=== PATIENT | female | born 1955 | race Caucasian/White ===

== ENCOUNTER 2024-05-04 13:01 | Emergency (ER) | payer OTHER, MEDICARE ==
[~2024-05-04] VITALS: Ht 160 cm; Wt 102.1 kg
[2024-05-04 13:14] VITALS: BP_SYST 169; PULSE 76; RESP 16; TEMP 97.5; O2SAT 94
[2024-05-04] MEDS: IBUPROFEN 600 MG TABLET PO ONE (14:59)
[2024-05-04] MEDS: KETOROLAC TROMETHAMINE 30 MG VIAL IM ONE (15:29)
[2024-05-04] MEDS ORDERED: NEOM28.36 TP (15:59)
[2024-05-04] MEDS ORDERED: DICL20GE TP (15:59)
[2024-05-04] MEDS ORDERED: BACITRACIN 1 GM OINT TP ONE (16:00)
[2024-05-04] MEDS ORDERED: BACITRACIN ZINC 15 GM TOPICAL OINTMENT TP ONE (16:00)
[2024-05-04] MEDS: BACITRACIN 1 GM OINT TP ONE (16:10)
[2024-05-04 16:12] VITALS: BP_SYST 169; PULSE 76; RESP 16; TEMP 97.5; O2SAT 94
== END 2024-05-04 16:13 | disposition home or self-care (01) ==
LOC: SED 13:01
DX: S80.11XA Contusion of right lower leg, initial encounter (principal); I10 Essential (primary) hypertension; V89.2XXA Person injured in unspecified motor-vehicle accident, traffic, initial encounter; Y93.89 Activity, other specified; Y92.89 Other specified places as the place of occurrence of the external cause; Y99.8 Other external cause status
CPT/HCPCS: 99283; 73590; 96372; J1885